=== PATIENT | female | born 1945 | race Caucasian/White ===

== ENCOUNTER 2020-12-22 13:27 | Inpatient (IN) | payer MEDICARE ==
[2020-12-22] MEDS ORDERED: Pancrelipase DR 12,000 1 CAP FS PRN (17:15)
[2020-12-22] MEDS ORDERED: Sodium Bicarbonate Tab 325 MG TAB PER TUBE PRN (17:15)
[2020-12-22] MEDS: Pantoprazole 40 MG GRANULES PACKET PER TUBE SCH (20:13)
[2020-12-22] MEDS: Donepezil HCl 10 MG TAB PER TUBE SCH (20:14)
[2020-12-22] MEDS: Linezolid 600 MG TAB PER TUBE SCH (20:14)
[2020-12-22] MEDS ORDERED: Levothyroxine Sodium 25 MCG TAB PER TUBE SCH (21:00)
[2020-12-23] MEDS: Levothyroxine Sodium 25 MCG TAB PER TUBE SCH (05:54)
[2020-12-23] MEDS: Alogliptin 25 MG TAB PER TUBE SCH (08:33)
[2020-12-23] MEDS: lamoTRIgine 25 MG TAB PER TUBE SCH (08:33)
[2020-12-23] MEDS: Pantoprazole 40 MG GRANULES PACKET PER TUBE SCH ×2 (08:33→20:52)
[2020-12-23] MEDS: Citalopram 20 MG TAB PER TUBE SCH (08:35)
[2020-12-23] MEDS: Linezolid 600 MG TAB PER TUBE SCH ×2 (08:35→20:52)
[2020-12-23] MEDS: HumaLOG 300 UNITS/3 ML VIAL SC PRN (19:13)
[2020-12-23] MEDS ORDERED: Dextrose 50% Abboject 50 ML SYRINGE IVP PRN (19:15)
[2020-12-23] MEDS ORDERED: Dextrose 5% in Water 1,000 ML IV PRN (19:15)
[2020-12-23] MEDS: Donepezil HCl 10 MG TAB PER TUBE SCH (20:52)
[2020-12-24] MEDS: Levothyroxine Sodium 25 MCG TAB PER TUBE SCH (05:04)
[2020-12-24] MEDS: Pantoprazole 40 MG GRANULES PACKET PER TUBE SCH ×2 (09:00→20:25)
[2020-12-24] MEDS: lamoTRIgine 25 MG TAB PER TUBE SCH (09:00)
[2020-12-24] MEDS: Alogliptin 25 MG TAB PER TUBE SCH (09:00)
[2020-12-24] MEDS: Citalopram 20 MG TAB PER TUBE SCH (09:01)
[2020-12-24] MEDS: Linezolid 600 MG TAB PER TUBE SCH ×2 (09:02→20:25)
[2020-12-24] MEDS: Donepezil HCl 10 MG TAB PER TUBE SCH (20:25)
[2020-12-25] MEDS: Levothyroxine Sodium 25 MCG TAB PER TUBE SCH (05:30)
[2020-12-25] MEDS: Linezolid 600 MG TAB PER TUBE SCH ×2 (08:49→20:09)
[2020-12-25] MEDS: Pantoprazole 40 MG GRANULES PACKET PER TUBE SCH ×2 (08:49→20:10)
[2020-12-25] MEDS: Citalopram 20 MG TAB PER TUBE SCH (08:49)
[2020-12-25] MEDS: Saccharomyces boulardii 250 MG CAP PER TUBE SCH (08:50)
[2020-12-25] MEDS: Alogliptin 25 MG TAB PER TUBE SCH (08:51)
[2020-12-25] MEDS: lamoTRIgine 25 MG TAB PER TUBE SCH (08:51)
[2020-12-25] MEDS: Acetaminophen 325 MG TAB PER TUBE PRN (17:13)
[2020-12-25] MEDS: Donepezil HCl 10 MG TAB PER TUBE SCH (20:10)
[2020-12-26] MEDS: Levothyroxine Sodium 25 MCG TAB PER TUBE SCH (05:12)
[2020-12-26] MEDS: Alogliptin 25 MG TAB PER TUBE SCH (08:33)
[2020-12-26] MEDS: Pantoprazole 40 MG GRANULES PACKET PER TUBE SCH ×2 (08:33→20:50)
[2020-12-26] MEDS: Linezolid 600 MG TAB PER TUBE SCH ×2 (08:34→20:50)
[2020-12-26] MEDS: Citalopram 20 MG TAB PER TUBE SCH (08:34)
[2020-12-26] MEDS: Saccharomyces boulardii 250 MG CAP PER TUBE SCH (08:34)
[2020-12-26] MEDS: lamoTRIgine 25 MG TAB PER TUBE SCH (08:45)
[2020-12-26] MEDS: Acetaminophen 325 MG TAB PER TUBE PRN (15:52)
[2020-12-26] MEDS: Donepezil HCl 10 MG TAB PER TUBE SCH (20:50)
[2020-12-27] MEDS: Levothyroxine Sodium 25 MCG TAB PER TUBE SCH (05:45)
[2020-12-27] MEDS: Linezolid 600 MG TAB PER TUBE SCH ×2 (08:21→20:14)
[2020-12-27] MEDS: Pantoprazole 40 MG GRANULES PACKET PER TUBE SCH ×2 (08:21→20:14)
[2020-12-27] MEDS: Alogliptin 25 MG TAB PER TUBE SCH (08:22)
[2020-12-27] MEDS: Saccharomyces boulardii 250 MG CAP PER TUBE SCH (08:22)
[2020-12-27] MEDS: Citalopram 20 MG TAB PER TUBE SCH (08:22)
[2020-12-27] MEDS: lamoTRIgine 25 MG TAB PER TUBE SCH (08:23)
[2020-12-27] MEDS: Donepezil HCl 10 MG TAB PER TUBE SCH (20:14)
[2020-12-28] MEDS: Levothyroxine Sodium 25 MCG TAB PER TUBE SCH (05:28)
[2020-12-28] MEDS: Citalopram 20 MG TAB PER TUBE SCH (08:51)
[2020-12-28] MEDS: Saccharomyces boulardii 250 MG CAP PER TUBE SCH (08:51)
[2020-12-28] MEDS: Alogliptin 25 MG TAB PER TUBE SCH (08:51)
[2020-12-28] MEDS: Pantoprazole 40 MG GRANULES PACKET PER TUBE SCH ×2 (08:52→20:50)
[2020-12-28] MEDS: HumaLOG 300 UNITS/3 ML VIAL SC PRN ×2 (13:14→18:09)
[2020-12-28] MEDS: Acetaminophen 325 MG TAB PER TUBE PRN (20:50)
[2020-12-28] MEDS: Donepezil HCl 10 MG TAB PER TUBE SCH (20:50)
[2020-12-29] MEDS: Levothyroxine Sodium 25 MCG TAB PER TUBE SCH (07:26)
[2020-12-29] MEDS: HumaLOG 300 UNITS/3 ML VIAL SC PRN (08:36)
[2020-12-29] MEDS: Saccharomyces boulardii 250 MG CAP PER TUBE SCH (08:49)
[2020-12-29] MEDS: Fluconazole 100 MG TAB PER TUBE SCH (08:49)
[2020-12-29] MEDS: Alogliptin 25 MG TAB PER TUBE SCH (08:49)
[2020-12-29] MEDS: Pantoprazole 40 MG GRANULES PACKET PER TUBE SCH ×2 (08:49→21:14)
[2020-12-29] MEDS: Citalopram 20 MG TAB PER TUBE SCH (08:50)
[2020-12-29] MEDS ORDERED: Fluconazole 100 MG TAB PO SCH (09:00)
[2020-12-29] MEDS ORDERED: Nystatin Powder 15 GM BOT TOP PRN (10:21)
[2020-12-29] MEDS: Donepezil HCl 10 MG TAB PER TUBE SCH (21:12)
[2020-12-30] MEDS: Levothyroxine Sodium 25 MCG TAB PER TUBE SCH (05:28)
[2020-12-30] MEDS: Fluconazole 100 MG TAB PER TUBE SCH (08:28)
[2020-12-30] MEDS: Citalopram 20 MG TAB PER TUBE SCH (08:28)
[2020-12-30] MEDS: Saccharomyces boulardii 250 MG CAP PER TUBE SCH (08:28)
[2020-12-30] MEDS: Alogliptin 25 MG TAB PER TUBE SCH (08:28)
[2020-12-30] MEDS: Pantoprazole 40 MG GRANULES PACKET PER TUBE SCH ×2 (08:29→19:58)
[2020-12-30] MEDS: HumaLOG 300 UNITS/3 ML VIAL SC PRN (19:57)
[2020-12-30] MEDS: Donepezil HCl 10 MG TAB PER TUBE SCH (19:58)
[2020-12-31] MEDS: Levothyroxine Sodium 25 MCG TAB PER TUBE SCH (05:23)
[2020-12-31] MEDS: HumaLOG 300 UNITS/3 ML VIAL SC PRN (09:44)
[2020-12-31] MEDS: Saccharomyces boulardii 250 MG CAP PER TUBE SCH (09:45)
[2020-12-31] MEDS: Fluconazole 100 MG TAB PER TUBE SCH (09:46)
[2020-12-31] MEDS: Citalopram 20 MG TAB PER TUBE SCH (09:46)
[2020-12-31] MEDS: Pantoprazole 40 MG GRANULES PACKET PER TUBE SCH ×2 (09:46→20:49)
[2020-12-31] MEDS: Alogliptin 25 MG TAB PER TUBE SCH (09:46)
[2020-12-31] MEDS: Donepezil HCl 10 MG TAB PER TUBE SCH (20:49)
[2021-01-01] MEDS: Levothyroxine Sodium 25 MCG TAB PER TUBE SCH (05:18)
[2021-01-01] MEDS: Citalopram 20 MG TAB PER TUBE SCH (09:06)
[2021-01-01] MEDS: Fluconazole 100 MG TAB PER TUBE SCH (09:07)
[2021-01-01] MEDS: Pantoprazole 40 MG GRANULES PACKET PER TUBE SCH ×2 (09:07→21:14)
[2021-01-01] MEDS: Saccharomyces boulardii 250 MG CAP PER TUBE SCH (09:07)
[2021-01-01] MEDS: Alogliptin 25 MG TAB PER TUBE SCH (09:07)
[2021-01-01] MEDS: Donepezil HCl 10 MG TAB PER TUBE SCH (21:14)
[2021-01-02] MEDS: Levothyroxine Sodium 25 MCG TAB PER TUBE SCH (05:40)
[2021-01-02] MEDS: Pantoprazole 40 MG GRANULES PACKET PER TUBE SCH ×2 (09:39→21:19)
[2021-01-02] MEDS: Alogliptin 25 MG TAB PER TUBE SCH (09:39)
[2021-01-02] MEDS: Saccharomyces boulardii 250 MG CAP PER TUBE SCH (09:39)
[2021-01-02] MEDS: Citalopram 20 MG TAB PER TUBE SCH (09:39)
[2021-01-02] MEDS: Fluconazole 100 MG TAB PER TUBE SCH (09:40)
[2021-01-02] MEDS: Donepezil HCl 10 MG TAB PER TUBE SCH (21:18)
[2021-01-03] MEDS: Levothyroxine Sodium 25 MCG TAB PER TUBE SCH (05:22)
[2021-01-03] MEDS: Fluconazole 100 MG TAB PER TUBE SCH (09:42)
[2021-01-03] MEDS: Pantoprazole 40 MG GRANULES PACKET PER TUBE SCH ×2 (09:42→21:00)
[2021-01-03] MEDS: Saccharomyces boulardii 250 MG CAP PER TUBE SCH (09:42)
[2021-01-03] MEDS: Citalopram 20 MG TAB PER TUBE SCH (09:42)
[2021-01-03] MEDS: Alogliptin 25 MG TAB PER TUBE SCH (09:42)
[2021-01-03] MEDS: HumaLOG 300 UNITS/3 ML VIAL SC PRN (18:03)
[2021-01-03] MEDS: Donepezil HCl 10 MG TAB PER TUBE SCH (21:00)
[2021-01-04] MEDS: Levothyroxine Sodium 25 MCG TAB PER TUBE SCH (06:04)
[2021-01-04] MEDS: Saccharomyces boulardii 250 MG CAP PER TUBE SCH (10:38)
[2021-01-04] MEDS: Citalopram 20 MG TAB PER TUBE SCH (10:39)
[2021-01-04] MEDS: Pantoprazole 40 MG GRANULES PACKET PER TUBE SCH ×2 (10:39→21:09)
[2021-01-04] MEDS: Alogliptin 25 MG TAB PER TUBE SCH (10:40)
[2021-01-04] MEDS: Fluconazole 100 MG TAB PER TUBE SCH (10:40)
[2021-01-04] MEDS: Donepezil HCl 10 MG TAB PER TUBE SCH (21:09)
[2021-01-05] MEDS: Levothyroxine Sodium 25 MCG TAB PER TUBE SCH (05:34)
[2021-01-05] MEDS: Alogliptin 25 MG TAB PER TUBE SCH (10:08)
[2021-01-05] MEDS: Pantoprazole 40 MG GRANULES PACKET PER TUBE SCH ×2 (10:09→22:20)
[2021-01-05] MEDS: Citalopram 20 MG TAB PER TUBE SCH (10:09)
[2021-01-05] MEDS: Fluconazole 100 MG TAB PER TUBE SCH (10:10)
[2021-01-05] MEDS: Saccharomyces boulardii 250 MG CAP PER TUBE SCH (10:11)
[2021-01-05] MEDS: HumaLOG 300 UNITS/3 ML VIAL SC PRN (13:25)
[2021-01-05] MEDS: Donepezil HCl 10 MG TAB PER TUBE SCH (22:19)
[2021-01-06] MEDS: Levothyroxine Sodium 25 MCG TAB PER TUBE SCH (05:44)
[2021-01-06] MEDS: Pantoprazole 40 MG GRANULES PACKET PER TUBE SCH ×2 (10:13→21:12)
[2021-01-06] MEDS: Saccharomyces boulardii 250 MG CAP PER TUBE SCH (10:13)
[2021-01-06] MEDS: Citalopram 20 MG TAB PER TUBE SCH (10:14)
[2021-01-06] MEDS: Alogliptin 25 MG TAB PER TUBE SCH (10:14)
[2021-01-06] MEDS: Donepezil HCl 10 MG TAB PER TUBE SCH (21:11)
[2021-01-07] MEDS: Levothyroxine Sodium 25 MCG TAB PER TUBE SCH (05:27)
[2021-01-07] MEDS: Citalopram 20 MG TAB PER TUBE SCH (10:54)
[2021-01-07] MEDS: Saccharomyces boulardii 250 MG CAP PER TUBE SCH (10:54)
[2021-01-07] MEDS: Alogliptin 25 MG TAB PER TUBE SCH (10:54)
[2021-01-07] MEDS: Pantoprazole 40 MG GRANULES PACKET PER TUBE SCH ×2 (10:55→20:30)
[2021-01-07] MEDS: Donepezil HCl 10 MG TAB PER TUBE SCH (20:30)
[2021-01-08] MEDS: Levothyroxine Sodium 25 MCG TAB PER TUBE SCH (05:36)
[2021-01-08] MEDS: Citalopram 20 MG TAB PER TUBE SCH (08:26)
[2021-01-08] MEDS: Saccharomyces boulardii 250 MG CAP PER TUBE SCH (08:27)
[2021-01-08] MEDS: Alogliptin 25 MG TAB PER TUBE SCH (08:27)
[2021-01-08] MEDS: Pantoprazole 40 MG GRANULES PACKET PER TUBE SCH ×2 (08:27→20:44)
[2021-01-08] MEDS: Donepezil HCl 10 MG TAB PER TUBE SCH (20:44)
[2021-01-09] MEDS: Levothyroxine Sodium 25 MCG TAB PER TUBE SCH (05:52)
[2021-01-09] MEDS: Pantoprazole 40 MG GRANULES PACKET PER TUBE SCH ×2 (09:00→20:13)
[2021-01-09] MEDS: Citalopram 20 MG TAB PER TUBE SCH (09:00)
[2021-01-09] MEDS: Alogliptin 25 MG TAB PER TUBE SCH (09:01)
[2021-01-09] MEDS: Saccharomyces boulardii 250 MG CAP PER TUBE SCH (09:01)
[2021-01-09] MEDS: Donepezil HCl 10 MG TAB PER TUBE SCH (20:13)
[2021-01-10] MEDS: Levothyroxine Sodium 25 MCG TAB PER TUBE SCH (05:13)
[2021-01-10] MEDS: Alogliptin 25 MG TAB PER TUBE SCH (09:14)
[2021-01-10] MEDS: Saccharomyces boulardii 250 MG CAP PER TUBE SCH (09:14)
[2021-01-10] MEDS: Citalopram 20 MG TAB PER TUBE SCH (09:15)
[2021-01-10] MEDS: Pantoprazole 40 MG GRANULES PACKET PER TUBE SCH ×2 (09:16→20:00)
[2021-01-10] MEDS: Donepezil HCl 10 MG TAB PER TUBE SCH (20:00)
[2021-01-11] MEDS: Levothyroxine Sodium 25 MCG TAB PER TUBE SCH (05:07)
[2021-01-11] MEDS: Saccharomyces boulardii 250 MG CAP PER TUBE SCH (09:42)
[2021-01-11] MEDS: Pantoprazole 40 MG GRANULES PACKET PER TUBE SCH ×2 (09:42→20:30)
[2021-01-11] MEDS: Citalopram 20 MG TAB PER TUBE SCH (09:42)
[2021-01-11] MEDS: Alogliptin 25 MG TAB PER TUBE SCH (09:42)
[2021-01-11] MEDS: Donepezil HCl 10 MG TAB PER TUBE SCH (20:30)
[2021-01-12] MEDS: Levothyroxine Sodium 25 MCG TAB PER TUBE SCH (05:21)
[2021-01-12] MEDS: Pantoprazole 40 MG GRANULES PACKET PER TUBE SCH ×2 (09:47→20:21)
[2021-01-12] MEDS: Alogliptin 25 MG TAB PER TUBE SCH (09:47)
[2021-01-12] MEDS: Saccharomyces boulardii 250 MG CAP PER TUBE SCH (09:47)
[2021-01-12] MEDS: Citalopram 20 MG TAB PER TUBE SCH (09:47)
[2021-01-12] MEDS: Donepezil HCl 10 MG TAB PER TUBE SCH (20:17)
[2021-01-13] MEDS: Levothyroxine Sodium 25 MCG TAB PER TUBE SCH (05:04)
[2021-01-13] MEDS: Pantoprazole 40 MG GRANULES PACKET PER TUBE SCH ×2 (08:50→20:42)
[2021-01-13] MEDS: Saccharomyces boulardii 250 MG CAP PER TUBE SCH (08:50)
[2021-01-13] MEDS: Alogliptin 25 MG TAB PER TUBE SCH (08:51)
[2021-01-13] MEDS: Citalopram 20 MG TAB PER TUBE SCH (08:51)
[2021-01-13 09:59] VITALS: BMI 34.7
[2021-01-13] MEDS: Donepezil HCl 10 MG TAB PER TUBE SCH (20:43)
[2021-01-14] MEDS: Levothyroxine Sodium 25 MCG TAB PER TUBE SCH (05:32)
[2021-01-14] MEDS: Citalopram 20 MG TAB PER TUBE SCH (08:49)
[2021-01-14] MEDS: Saccharomyces boulardii 250 MG CAP PER TUBE SCH ×2 (08:50→08:51)
[2021-01-14] MEDS: Alogliptin 25 MG TAB PER TUBE SCH (08:50)
[2021-01-14] MEDS: Pantoprazole 40 MG GRANULES PACKET PER TUBE SCH ×2 (08:50→21:07)
[2021-01-14] MEDS: Donepezil HCl 10 MG TAB PER TUBE SCH (21:07)
[2021-01-15] MEDS: Levothyroxine Sodium 25 MCG TAB PER TUBE SCH (05:18)
[2021-01-15] MEDS: Citalopram 20 MG TAB PER TUBE SCH (10:58)
[2021-01-15] MEDS: Alogliptin 25 MG TAB PER TUBE SCH (10:59)
[2021-01-15] MEDS: Pantoprazole 40 MG GRANULES PACKET PER TUBE SCH ×2 (11:00→20:49)
[2021-01-15] MEDS: Saccharomyces boulardii 250 MG CAP PER TUBE SCH (11:01)
[2021-01-15] MEDS: Donepezil HCl 10 MG TAB PER TUBE SCH (20:48)
[2021-01-16] MEDS: Levothyroxine Sodium 25 MCG TAB PER TUBE SCH (05:24)
[2021-01-16] MEDS: Citalopram 20 MG TAB PER TUBE SCH (09:46)
[2021-01-16] MEDS: Alogliptin 25 MG TAB PER TUBE SCH (09:46)
[2021-01-16] MEDS: Saccharomyces boulardii 250 MG CAP PER TUBE SCH (09:46)
[2021-01-16] MEDS: Pantoprazole 40 MG GRANULES PACKET PER TUBE SCH ×2 (09:47→20:57)
[2021-01-16] MEDS: Donepezil HCl 10 MG TAB PER TUBE SCH (20:57)
[2021-01-17] MEDS: Levothyroxine Sodium 25 MCG TAB PER TUBE SCH (05:58)
[2021-01-17] MEDS: Saccharomyces boulardii 250 MG CAP PER TUBE SCH (10:50)
[2021-01-17] MEDS: Citalopram 20 MG TAB PER TUBE SCH (10:50)
[2021-01-17] MEDS: Pantoprazole 40 MG GRANULES PACKET PER TUBE SCH ×2 (10:51→21:51)
[2021-01-17] MEDS: Alogliptin 25 MG TAB PER TUBE SCH (10:51)
[2021-01-17] MEDS: Donepezil HCl 10 MG TAB PER TUBE SCH (21:51)
[2021-01-18] MEDS: Levothyroxine Sodium 25 MCG TAB PER TUBE SCH (05:37)
[2021-01-18] MEDS: Citalopram 20 MG TAB PER TUBE SCH (09:23)
[2021-01-18] MEDS: Alogliptin 25 MG TAB PER TUBE SCH (09:23)
[2021-01-18] MEDS: Saccharomyces boulardii 250 MG CAP PER TUBE SCH (09:23)
[2021-01-18] MEDS: Pantoprazole 40 MG GRANULES PACKET PER TUBE SCH ×2 (09:23→21:35)
[2021-01-18 19:01] LABS: Bilirubin Negative (Negative); Blood, Urine Negative (Negative); Clarity Cloudy (Clear); Glucose, Urine (Dipstick) Negative (Negative); Ketone, Urine Negative (Negative); Leukocyte Small (Negative); Nitrite Positive (Negative); Protein, Urine (Dipstick) Negative (Neg-Trace); Specific Gravity, Urine 1.015 (1.005-1.030); Urobilinogen 0.2 mg/dL (Less than 2)
[2021-01-18 19:09] LABS: Bacteria/HPF 3+ HPF (None Seen); Calcium Oxalate Crystals 2+ HPF (None Seen); RBC/HPF 0-3 HPF (0-3); Squamous Epithelial 0-3 HPF (0-3)
[2021-01-18] MEDS: Donepezil HCl 10 MG TAB PER TUBE SCH (21:34)
[2021-01-18] MEDS: Nitrofurantoin Monohyd/M-Cryst 100 MG CAP PO SCH (21:35)
[2021-01-19] MEDS: Levothyroxine Sodium 25 MCG TAB PER TUBE SCH (05:26)
[2021-01-19] MEDS: Alogliptin 25 MG TAB PER TUBE SCH (10:02)
[2021-01-19] MEDS: Nitrofurantoin Monohyd/M-Cryst 100 MG CAP PO SCH ×2 (10:02→22:44)
[2021-01-19] MEDS: Citalopram 20 MG TAB PER TUBE SCH (10:02)
[2021-01-19] MEDS: Saccharomyces boulardii 250 MG CAP PER TUBE SCH (10:02)
[2021-01-19] MEDS: Pantoprazole 40 MG GRANULES PACKET PER TUBE SCH ×2 (10:03→22:44)
[2021-01-19] MEDS: Donepezil HCl 10 MG TAB PER TUBE SCH (22:44)
[2021-01-20] MEDS: Levothyroxine Sodium 25 MCG TAB PER TUBE SCH (05:48)
[2021-01-20] MEDS: Alogliptin 25 MG TAB PER TUBE SCH (09:39)
[2021-01-20] MEDS: Saccharomyces boulardii 250 MG CAP PER TUBE SCH (09:39)
[2021-01-20] MEDS: Pantoprazole 40 MG GRANULES PACKET PER TUBE SCH ×2 (09:39→20:19)
[2021-01-20] MEDS: Nitrofurantoin Monohyd/M-Cryst 100 MG CAP PO SCH ×2 (09:40→20:19)
[2021-01-20] MEDS: Citalopram 20 MG TAB PER TUBE SCH (09:40)
[2021-01-20] MEDS: Donepezil HCl 10 MG TAB PER TUBE SCH (20:18)
[2021-01-21] MEDS: Levothyroxine Sodium 25 MCG TAB PER TUBE SCH (05:22)
[2021-01-21 05:47] VITALS: BP 123/59; TEMP 99
[2021-01-21] MEDS: Saccharomyces boulardii 250 MG CAP PER TUBE SCH (09:54)
[2021-01-21] MEDS: Citalopram 20 MG TAB PER TUBE SCH (09:54)
[2021-01-21] MEDS: Pantoprazole 40 MG GRANULES PACKET PER TUBE SCH (09:55)
[2021-01-21] MEDS: Nitrofurantoin Monohyd/M-Cryst 100 MG CAP PO SCH (09:55)
[2021-01-21] MEDS: Alogliptin 25 MG TAB PER TUBE SCH (09:56)
== END 2021-01-21 14:45 | disposition home health service (06) | DRG 948 ==
LOC: BURMED 14:05
PROVIDERS: ADMIT Family Medicine; ATTEND Family Medicine
DX: R53.81 Other malaise (principal); N39.0 Urinary tract infection, site not specified; R13.10 Dysphagia, unspecified; E11.9 Type 2 diabetes mellitus without complications; E03.9 Hypothyroidism, unspecified; F31.9 Bipolar disorder, unspecified; G20 Parkinson's disease; F02.80 Dementia in other diseases classified elsewhere, unspecified severity, without behavioral disturbance, psychotic disturbance, mood disturbance, and anxiety; Z93.1 Gastrostomy status
CPT/HCPCS: 36416; 81001; 87077; 87086; 87186